=== PATIENT | male | born 1960 | race Caucasian/White ===

== ENCOUNTER → 2016-10-03 | Outpatient (REF) | payer BC ==
[~2016-10-03] MED LIST: *BLDWK7; /ALLEGDTA; ACIPHEX; AMLO10TA; CERTRIZINE; HYDR25TA6; LISI40TA; LOPI600T; TRAM50TA2
[2016-10-03 13:49] LABS: ALBUMIN 4.1 GM/DL (3.2-5.2); ALBUMIN/GLOBULIN RATIO 1.17 (1.00-1.93); ALKALINE PHOSPHATASE 69 U/L (45-117); ALT/SGPT 47 U/L (12-78); ANION GAP 9 MEQ/L (8-16); AST/SGOT 39 U/L (15-37); BILIRUBIN,TOTAL 0.5 MG/DL (0.2-1.0); BLOOD UREA NITROGEN 14 MG/DL (7-18); CALCIUM LEVEL 8.8 MG/DL (8.5-10.1); CARBON DIOXIDE LEVEL 26 MEQ/L (21-32); CHLORIDE LEVEL 103 MEQ/L (98-107); CHOLESTEROL LEVEL 216 MG/DL (<200); CREATININE FOR GFR 0.91 MG/DL (0.70-1.30); GLOMERULAR FILTRATION RATE > 60.0 (>56); GLUCOSE, FASTING 102 MG/DL (70-105); POTASSIUM SERUM 4.7 MEQ/L (3.5-5.1); SODIUM LEVEL 138 MEQ/L (136-145); TOTAL PROTEIN 7.6 GM/DL (6.4-8.2); TRIGLYCERIDES LEVEL 368 MG/DL (<150)
== END ==
LOC: M LABDRAW1 13:02
PROVIDERS: ATTEND Physician Assistant
DX: I10 Essential (primary) hypertension (principal); E78.4 Other hyperlipidemia; Z12.5 Encounter for screening for malignant neoplasm of prostate
CPT/HCPCS: 36415; 80053; 80061; G0103

== ENCOUNTER → 2017-01-16 | Outpatient (REF) | payer BC ==
[2017-01-16 13:03] LABS: ALBUMIN 4.1 GM/DL (3.2-5.2); ALBUMIN/GLOBULIN RATIO 1.24 (1.00-1.93); ALKALINE PHOSPHATASE 64 U/L (45-117); ALT/SGPT 52 U/L (12-78); ANION GAP 11 MEQ/L (8-16); AST/SGOT 30 U/L (15-37); BILIRUBIN,TOTAL 0.5 MG/DL (0.2-1.0); BLOOD UREA NITROGEN 13 MG/DL (7-18); CARBON DIOXIDE LEVEL 27 MEQ/L (21-32); CHLORIDE LEVEL 104 MEQ/L (98-107); CHOLESTEROL LEVEL 214 MG/DL (<200); CREATININE FOR GFR 0.85 MG/DL (0.70-1.30); GLOMERULAR FILTRATION RATE > 60.0 (>56); GLUCOSE, FASTING 95 MG/DL (70-105); SODIUM LEVEL 142 MEQ/L (136-145); TOTAL PROTEIN 7.4 GM/DL (6.4-8.2); TRIGLYCERIDES LEVEL 322 MG/DL (<150)
== END ==
LOC: M LABDRAW1 11:53
PROVIDERS: ATTEND Physician Assistant
DX: E78.4 Other hyperlipidemia (principal)

== ENCOUNTER → 2017-07-07 | Outpatient (CLI) | payer BC | LOC: M ADAMS 12:53 | DX: M72.2 Plantar fascial fibromatosis (principal) | CPT/HCPCS: 73630 ==

== ENCOUNTER → 2018-07-02 | Outpatient (REF) | payer BC ==
[2018-07-02 12:38] LABS: HEMOGLOBIN A1c 5.7 %
== END ==
LOC: M SFHCPLAZ 07:56
PROVIDERS: ATTEND Family Medicine
DX: R73.03 Prediabetes (principal)

== ENCOUNTER 2018-07-09 08:24 | Emergency (ER) | payer BC ==
[~2018-07-09] VITALS: Ht 177.8 cm; Wt 114.5 kg
[2018-07-09] MEDS ORDERED: HYDR-3713 PO (08:39)
[2018-07-09] MEDS ORDERED: HYDR25TAB PO (08:39)
[2018-07-09] MEDS ORDERED: LISI-538 PO (08:39)
[2018-07-09] MEDS ORDERED: ROBA750T4 PO (08:39)
[2018-07-09] MEDS ORDERED: AMLO10TA5 PO (08:39)
[2018-07-09] MEDS ORDERED: PREV1CAP PO (08:39)
[2018-07-09] MEDS ORDERED: ALPR2TAB3 PO (08:39)
[2018-07-09] MEDS ORDERED: PRAV40TA2 PO (08:39)
[2018-07-09] MEDS ORDERED: ASPI81TA85 PO (08:39)
[2018-07-09] MEDS ORDERED: PROP10TAB PO (08:39)
[2018-07-09] MEDS ORDERED: NS 1,000 ML IV ONE (09:00)
[2018-07-09] MEDS ORDERED: KETOROLAC 30 MG/ML VIAL (J1885) IV ONE (09:00)
[2018-07-09 09:32] LABS: BASO # 0.1 10^3/uL (0.0-0.2); BASO % 0.4 % (0.0-1.0); EOS # 0.3 10^3/uL (0.0-0.50); EOS % 2.2 % (0.0-3.0); HEMATOCRIT 44.6 % (42.0-52.0); HEMOGLOBIN 15.2 g/dl (13.5-17.5); LYMPH # 2.8 10^3/uL (1.5-4.5); LYMPH % 20.8 % (24.0-44.0); MEAN CORPUSCULAR HEMOGLOBIN 31.9 pg (27.0-33.0); MEAN CORPUSCULAR HGB CONC 34.1 g/dl (32.0-36.5); MEAN CORPUSCULAR VOLUME 93.5 fl (80.0-96.0); MONO # 1.3 10^3/uL (0.0-0.8); MONO % 9.5 % (0.0-5.0); NEUTROPHILS # 8.8 10^3/uL (1.8-7.7); NEUTROPHILS % 66.7 % (36.0-66.0); PLATELET COUNT, AUTOMATED 266 10^3/uL (150-450); RED BLOOD COUNT 4.77 10^6/uL (4.30-6.10); WHITE BLOOD COUNT 13.2 10^3/uL (4.0-10.0)
[2018-07-09 09:56] LABS: ALBUMIN 4.1 GM/DL (3.2-5.2); BILIRUBIN,DIRECT 0.2 MG/DL (0.0-0.2); BILIRUBIN,TOTAL 0.6 MG/DL (0.2-1.0); CALCIUM LEVEL 8.8 MG/DL (8.8-10.2); CREATININE FOR GFR 1.32 MG/DL (0.70-1.30); GLOMERULAR FILTRATION RATE 58.9 (>49); POTASSIUM SERUM 4.4 MEQ/L (3.5-5.1)
--- NOTE | 2018-07-09 10:13 | REP ---
CT ABDOMEN AND PELVIS WITHOUT IV OR ORAL CONTRAST: Renal stone protocol. HISTORY: Right sided renal colic. Comparison CT study is from June 22, 2006. CT FINDINGS: Digital preliminary [place] radiograph shows an unremarkable bowel gas pattern. The lung bases are clear on axial CT images. The liver shows mild diffuse fatty infiltration but no focal liver lesion is seen. The gallbladder is unremarkable. The spleen is normal in size homogeneous in texture. Normal adrenal glands are seen bilaterally. No pancreatic abnormality is observed. There is mild right-sided hydronephrosis and right-sided hydroureter is seen to the level of the mid ureteral segment where there is an obstructing calculus. The calculus measures 6 mm in diameter. There is mild periureteral edema. There is some perinephric edema. There is a 3 mm intrarenal calculus in the upper pole of the left kidney and a tiny left mid kidney stone is also seen. There is a cyst in the lower pole of the left kidney measuring 13 mm. No bladder calculus is seen. Prostate and seminal vesicles are unremarkable. There is left colonic diverticulosis without CT evidence of diverticulitis. Mesenteric cecum and ascending colon. The ileocecal valve and cecum are to the left of midline in the central abdomen. There is a umbilical hernia transmitting abdominal fat. There are degenerative changes in the lumbar spine and a degenerative grade 1 5 mm L3-4 spondylolisthesis is present. IMPRESSION: Obstructing 6 mm right mid ureteral calculus with right-sided hydronephrosis. Fatty infiltration of the liver. Left colonic diverticulosis. Mesenteric cecum and ascending colon noted incidentally. Umbilical hernia. Electronically Signed by Lalit Ray MD 07/09/2018 10:46 A
[2018-07-09] MEDS ORDERED: FLOM0.4C39 PO (10:48)
[2018-07-09] MEDS ORDERED: ONDA4TAB6 PO (10:48)
[2018-07-09] MEDS ORDERED: IBUP-1022 PO (10:48)
[2018-07-09] MEDS ORDERED: NORCOTAB PO (10:48)
[2018-07-09 10:54] VITALS: BP 132/84
== END 2018-07-09 10:59 | disposition home or self-care (01) ==
LOC: M ED 08:24
DX: N20.0 Calculus of kidney (principal); N13.30 Unspecified hydronephrosis; Z87.442 Personal history of urinary calculi; E78.00 Pure hypercholesterolemia, unspecified; I10 Essential (primary) hypertension; J45.909 Unspecified asthma, uncomplicated; G47.30 Sleep apnea, unspecified; K21.9 Gastro-esophageal reflux disease without esophagitis; K57.32 Diverticulitis of large intestine without perforation or abscess without bleeding; Z79.82 Long term (current) use of aspirin; Z79.899 Other long term (current) drug therapy
CPT/HCPCS: 74176; 80048; 80076; 81001; 85025; 96374; 99284; J1885

== ENCOUNTER → 2018-07-16 | Outpatient (CLI) | payer BC ==
[~2018-07-16] MED LIST changes: +ALPR2TAB3 PO; +AMLO10TA5 PO; +ASPI81TA85 PO; +FLOM0.4C39 PO; +HYDR-3713 PO; +HYDR25TAB PO; +IBUP-1022 PO; +LISI-538 PO; +NORCOTAB PO; +ONDA4TAB6 PO; +PRAV40TA2 PO; +PREV1CAP PO; +PROP10TAB PO; +ROBA750T4 PO
[2018-07-16 18:54] LABS: IONIZED CALCIUM 4.6 MG/DL (4.5-5.3)
[2018-07-16 19:31] LABS: ALBUMIN 4.4 GM/DL (3.2-5.2); ALT/SGPT 33 U/L (12-78); BILIRUBIN,TOTAL 0.4 MG/DL (0.2-1.0); BLOOD UREA NITROGEN 15 MG/DL (7-18); CALCIUM LEVEL 9.2 MG/DL (8.8-10.2); CARBON DIOXIDE LEVEL 31 MEQ/L (21-32); CHLORIDE LEVEL 102 MEQ/L (98-107); GLOMERULAR FILTRATION RATE > 60.0 (>49); GLUCOSE, FASTING 99 MG/DL (70-100); MAGNESIUM LEVEL 1.7 MG/DL (1.8-2.4); POTASSIUM SERUM 4.5 MEQ/L (3.5-5.1); SODIUM LEVEL 140 MEQ/L (136-145); TOTAL PROTEIN 8.3 GM/DL (6.4-8.2); URIC ACID 6.3 MG/DL (3.5-7.2)
[2018-07-16 19:39] LABS: PTH INTACT 61.2 PG/ML (18.5-88.0)
[2018-07-16 19:40] LABS: BASO # 0.1 10^3/uL (0.0-0.2); BASO % 0.5 % (0.0-1.0); EOS # 0.4 10^3/uL (0.0-0.50); EOS % 4.1 % (0.0-3.0); HEMOGLOBIN 15.2 g/dl (13.5-17.5); LYMPH # 3.9 10^3/uL (1.5-4.5); LYMPH % 38.7 % (24.0-44.0); MEAN CORPUSCULAR HEMOGLOBIN 31.5 pg (27.0-33.0); MEAN CORPUSCULAR VOLUME 95.4 fl (80.0-96.0); MONO # 0.8 10^3/uL (0.0-0.8); MONO % 7.9 % (0.0-5.0); NEUTROPHILS # 4.9 10^3/uL (1.8-7.7); NEUTROPHILS % 48.5 % (36.0-66.0); PLATELET COUNT, AUTOMATED 289 10^3/uL (150-450); RED BLOOD COUNT 4.82 10^6/uL (4.30-6.10); WHITE BLOOD COUNT 10.1 10^3/uL (4.0-10.0)
--- NOTE | 2018-07-17 02:26 | REP ---
Clinical: Ureteral calculus. Technique: Two supine views of the abdomen and pelvis. Correlation: CT dated 07/09/2018. Findings: Evaluation of the urinary tract system is somewhat limited due to overlying bowel gas and technique. I suspect that the 6 mm obstructing calculus has progressed into the distal ureter overlying the distal portion of the right hemisacrum. Calcifications in the left lizzeth-sacrum are consistent with phleboliths. Bowel gas pattern suggests mild/moderate fecal stasis. No bowel obstruction. No organomegaly. Skeletal structures demonstrate age-related changes. Impression: Suspected progression of the right ureteral stone into the distal right ureter overlying the right hemisacrum. Electronically Signed by Rell Chase MD 07/17/2018 02:17 A
--- NOTE | 2018-07-17 02:37 | REP ---
Clinical: Preoperative assessment for ureteral stone removal . Comparison: 07/12/2008 . Findings: The mediastinum and cardiac silhouette are stable and within normal limits for portable technique. The lung suero are clear without acute consolidation, effusion, or pneumothorax. Skeletal structures are intact. Impression: No acute cardiopulmonary process appreciated. Electronically Signed by Rell Chase MD 07/17/2018 02:28 A
== END ==
LOC: M SMT 14:17
PROVIDERS: ATTEND Urology Pediatric Urology
DX: N20.1 Calculus of ureter (principal)

== ENCOUNTER → 2018-07-23 | Outpatient (CLI) | payer BC ==
[2018-07-26 00:09] LABS: PSA TOTAL 0.4 ng/mL (0.0-4.0)
== END ==
LOC: M SMT 11:03
PROVIDERS: ATTEND Urology Pediatric Urology
DX: N20.1 Calculus of ureter (principal)

== ENCOUNTER → 2018-08-14 | Outpatient (REF) | payer BC ==
[~2018-08-14] MED LIST changes: +ALBU17IN2 INH; +ALPR0.5T3 PO; +DIPH25CA PO; +FLUTISP; +MAGN400T2 PO; +MULT1TAB10 PO; +SING10TA32 PO; +SYMB16INH INH; +VITA100067 PO; +VITA500T PO
[2018-08-14 18:31] LABS: APPEARANCE, URINE CLEAR (CLEAR); BACTERIA, URINE AUTO NEGATIVE (NEGATIVE); BILIRUBIN, URINE AUTO NEGATIVE (NEGATIVE); BLOOD, URINE BLOOD NEGATIVE (NEGATIVE); COLOR, URINE YELLOW (YELLOW); GLUCOSE, URINE (UA) AUTO NEGATIVE (NEGATIVE); KETONE, URINE AUTO NEGATIVE (NEGATIVE); LEUKOCYTE ESTERASE, URINE AUTO NEGATIVE (NEGATIVE); NITRITE, URINE AUTO NEGATIVE (NEGATIVE); PROTEIN, URINE AUTO NEGATIVE (NEGATIVE); RBC, URINE AUTO 0 /HPF (0-3); SPECIFIC GRAVITY URINE AUTO 1.014 (1.002-1.035); SQUAMOUS EPITHELIAL CELL UR AU 0 /HPF (0-6); UROBILINOGEN, URINE AUTO 0.2 mg/dL (0.0-2.0); WBC, URINE AUTO 0 /HPF (0-3)
== END ==
LOC: M SFHCPLAZ 17:36
PROVIDERS: ATTEND Family Medicine
DX: N20.1 Calculus of ureter (principal)

== ENCOUNTER 2018-08-22 06:52 | Day surgery (SDC) | payer BC ==
[~2018-08-22] VITALS: Ht 175.3 cm; Wt 122.5 kg
[~2018-08-22 06:52] MED LIST changes: +LR 1,000 ML IV SCH; +ceFAZolin SOD 1 GM in D5W MINI-BAG PLUS 50 ML IV ONE
[2018-08-22] MEDS ORDERED: CONRAY-60 60% 50ML VIAL (Q9961) As Ordered ONE (08:02)
[2018-08-22] MEDS ORDERED: LIDOCAINE 2% 5ML JELLY UROJET As Ordered ONE (08:38)
[2018-08-22] MEDS ORDERED: PROPOFOL 200 MG/20 ML VIAL As Ordered ONE ×3 (08:40→09:00)
[2018-08-22] MEDS ORDERED: MIDAZOLAM INJ 2 MG/2 ML VIAL (J2250) As Ordered ONE (08:40)
[2018-08-22] MEDS ORDERED: fentaNYL 100 MCG/2 ML INJECTION (J3010) As Ordered ONE (08:40)
[2018-08-22 09:35] VITALS: BP 99/61
[2018-08-22] MEDS ORDERED: PERCOCET 5MG/325MG TAB PO PRN (09:45)
[2018-08-22] MEDS ORDERED: HYDROMORPHONE HCL 0.5 MG/ 0.5 ML SYRINGE (J1170 PER 1) IV PRN (09:45)
[2018-08-22] MEDS ORDERED: fentaNYL 100 MCG/2 ML INJECTION (J3010) IV PRN (09:45)
--- NOTE | 2018-08-22 09:58 | REP ---
RETROGRADE PYELOGRAM: 08/22/2018. Clinical history: Right mid ureteral stone. Comparison: KUB 07/16/2018, CT 07/09/2018. Findings: Five images from C-arm fluoroscopy provided to Dr. Hayden of the urology division are reviewed. The wire is seen coursing up the right ureter to the renal pelvis with a catheter to follow as the wire is coiled in the renal pelvis. The last image shows no wire or catheter in place. Contrast is completely drained from the collecting system and ureter. Fluoroscopy time: 12 seconds. Electronically Signed by Tad Bower MD 08/22/2018 09:47 P
--- NOTE | 2018-08-22 18:17 | RO ---
DATE OF PROCEDURE: 08/22/2018 PREPROCEDURE DIAGNOSIS: Right ureteral stone. POSTPROCEDURE DIAGNOSIS: Right ureteral stone. PROCEDURE: Cystoscopy, right ureteroscopy, right retrograde pyelogram with intraoperative interpretation of images. SURGEON: Steffen Hayden MD TRAVEL ASSISTANT: None. ANESTHESIA: Monitored anesthesia care (MAC) OPERATIVE INDICATIONS: This is a 58-year-old male who was found to have a 6 to 7 mm mid right ureteral stone three weeks ago. He was brought to the operating room today for treatment. DESCRIPTION OF PROCEDURE: The patient was brought to the operating room and MAC anesthesia was administered. Prophylactic antibiotics were infused. He was then placed in the dorsal lithotomy position, prepped and draped in the usual sterile fashion. At this point, a rigid cystoscope was inserted through the urethral meatus and advanced into the bladder. A guidewire was advanced up the right collecting system. I then removed the cystoscope and then went up the right collecting system with a short semirigid ureteroscope and examined all the way up to the mid right ureter. No stones were seen. The ureter was adequately dilated. I therefore, withdrew the short semirigid ureteroscope and then put a ureteral access sheath up the right collecting system. I then went up the ureteral access sheath with a flexible ureteroscope and examined the remainder of the ureter and the kidney. There were no stones seen in the mid to proximal ureter and there were no stones inside the kidney. Retrograde pyelogram was performed and was notable for mild right hydronephrosis, no extravasation. I then withdrew the ureteroscope along with the access sheath and once again no stones were seen within the ureter. I then examined the right ureteral orifice to see if it did efflux normally and it did. Contrast did seem to start draining out of the right kidney. Thus, I decided not to place a stent. At this point the wire was then removed and the bladder was emptied of all fluid and this marked the conclusion of the procedure. The patient was then taken out of the dorsal lithotomy position, awakened from anesthesia and transported to the recovery room in stable condition. ESTIMATED BLOOD LOSS: 5 mL. COMPLICATIONS: None. SPECIMENS: None. PLAN: The patient will followup in the clinic in a few weeks for postoperative visit. CHELSEA
== END 2018-08-22 10:20 | disposition home or self-care (01) ==
LOC: M SDC 06:52
PROVIDERS: ATTEND Urology
DX: N20.1 Calculus of ureter (principal); I10 Essential (primary) hypertension; E78.5 Hyperlipidemia, unspecified; J45.909 Unspecified asthma, uncomplicated; N40.0 Benign prostatic hyperplasia without lower urinary tract symptoms; G47.30 Sleep apnea, unspecified; Z79.82 Long term (current) use of aspirin; Z79.899 Other long term (current) drug therapy; K21.9 Gastro-esophageal reflux disease without esophagitis; R73.03 Prediabetes
CPT/HCPCS: 52005; 74420; C1769; C1894; J0690; J2250; J3010; Q9961

== ENCOUNTER → 2018-08-28 | Outpatient (REF) | payer BC ==
[~2018-08-28] MED LIST changes: -LR 1,000 ML IV SCH; -ceFAZolin SOD 1 GM in D5W MINI-BAG PLUS 50 ML IV ONE
== END ==
LOC: M SMT 17:15
PROVIDERS: ATTEND Urology
DX: R30.0 Dysuria (principal)

== ENCOUNTER 2019-07-23 07:31 | Day surgery (SDC) | payer BC ==
[~2019-07-23] VITALS: Ht 177.8 cm; Wt 123.8 kg
[~2019-07-23 07:31] MED LIST changes: -ALBU17IN2 INH; -DIPH25CA PO; +DIPH25CA32 PO; +FISH306C PO; +HYDR-3715 PO; +MULT1TAB7 PO; -NORCOTAB PO; +NS 1,000 ML IV ONE; +PROP10TA55 PO; +PROP10TA56 PO; -PROP10TAB PO; +PROV108A INH; +VITA100054 PO
[2019-07-23] MEDS ORDERED: LIDOCAINE 2% INJ 100 MG/5 ML SDV (FOR ANES.) As Ordered ONE (09:14)
[2019-07-23] MEDS ORDERED: propofoL 200 MG/20 ML VIAL As Ordered ONE (09:14)
--- NOTE | 2019-07-23 09:24 | ROOR ---
Patient Name: Erick Spencer Procedure Date: 07/23/2019 8:57 AM Date of : 1960 Age: 59 Room: [facility] Gender: Male Note Status: Finalized Procedure: Upper GI endoscopy Indications: Surveillance procedure, Follow-up of Abnerjee's esophagus Providers: Cezar Hernandez MD Referring MD: [facility] [place], [facility], Admin. Requesting Provider: Medicines: Monitored Anesthesia Care Complications: No immediate complications. Procedure: Pre-Anesthesia Assessment: - Prior to the procedure, a History and Physical was performed, and patient medications and allergies were reviewed. The patient is competent. The risks and benefits of the procedure and the sedation options and risks were discussed with the patient. All questions were answered and informed consent was obtained. Patient identification and proposed procedure were verified by the physician, the nurse and the anesthesiologist in the procedure room. Mental Status Examination: alert and oriented. Airway Examination: normal oropharyngeal airway and neck mobility. Prophylactic Antibiotics: The patient does not require prophylactic antibiotics. Prior Anticoagulants: The patient has taken no previous anticoagulant or antiplatelet agents. ASA Grade Assessment: III - A patient with severe systemic disease. After reviewing the risks and benefits, the patient was deemed in satisfactory condition to undergo the procedure. The anesthesia plan was to use monitored anesthesia care (MAC). Immediately prior to administration of medications, the patient was re-assessed for adequacy to receive sedatives. The heart rate, respiratory rate, oxygen saturations, blood pressure, adequacy of pulmonary ventilation, and response to care were monitored throughout the procedure. The physical status of the patient was re-assessed after the procedure. The Endoscope was introduced through the mouth, and advanced to the second part of duodenum. The upper GI endoscopy was accomplished without difficulty. The patient tolerated the procedure well. Findings: The examined esophagus was normal. Multiple 2 to 10 mm pedunculated and sessile polyps with no bleeding and no stigmata of recent bleeding were found in the gastric fundus and in the gastric body. The first portion of the duodenum and second portion of the duodenum were normal. Impression: - Normal esophagus. - Multiple gastric polyps. - Normal first portion of the duodenum and second portion of the duodenum. - No specimens collected. Recommendation: - Discharge patient to home. - Resume previous diet. - Continue present medications. Cezar Hernandez MD Cezar Hernandez MD 07/23/2019 9:24:17 AM Electronically signed by Cezar Hernandez MD Number of Addenda: 0 Note Initiated On: 07/23/2019 8:57 AM Estimated Blood Loss: Estimated blood loss: none.
[2019-07-23 09:40] VITALS: BP 148/77
== END 2019-07-23 09:50 | disposition home or self-care (01) ==
LOC: M OPP 07:31
PROVIDERS: ATTEND Surgery
DX: K31.2 Hourglass stricture and stenosis of stomach (principal); K22.70 Barrett's esophagus without dysplasia; K21.9 Gastro-esophageal reflux disease without esophagitis; G47.30 Sleep apnea, unspecified; Z79.891 Long term (current) use of opiate analgesic; Z79.899 Other long term (current) drug therapy

== ENCOUNTER → 2019-07-31 | Outpatient (REF) | payer BC ==
[~2019-07-31] MED LIST changes: -NS 1,000 ML IV ONE
== END ==
LOC: M SFHCPLAZ 11:18
PROVIDERS: ATTEND Family Medicine
DX: Z12.5 Encounter for screening for malignant neoplasm of prostate (principal)

== ENCOUNTER → 2019-10-17 | Outpatient (CLI) | payer BC ==
[~2019-10-17] MED LIST changes: +VITA-243 PO; -VITA500T PO
--- NOTE | 2019-10-17 19:23 | REP ---
Clinical: Palpable mass. Technique: Real time ruiz scale and color Doppler evaluation using linear high frequency transducer. Findings: The bilateral testicles are normal in contour, size, echogenicity, and vascularity without intratesticular mass lesion, infectious/inflammatory process, torsion. A complex 8 x 6 x 9 mm presumed cyst in the right epididymal tail is identified and corresponds to the patient's palpable mass. No associated hydrocele. No varicocele. A 6 x 3 x 4 mm simple left epididymal head cyst is identified along with small simple left hydrocele. Right testicle measures 3.6 x 2.3 x 3.3 cm. Left testicle measures 4.2 x 2.5 x 2.7 cm. Impression: 1. Palpable mass corresponds to complex cystic structure in the right epididymal tail. Consider follow-up examination at three 6 months to evaluate for stability. 2. Further relatively nonsignificant findings noted above. Electronically Signed by Rell Chase MD 10/17/2019 07:14 P
== END ==
LOC: M RAD 13:10
PROVIDERS: ATTEND Nurse Practitioner Women's Health
DX: N50.89 Other specified disorders of the male genital organs (principal); N43.3 Hydrocele, unspecified

== ENCOUNTER → 2019-11-05 | Outpatient (REF) | payer BC | LOC: M SFHCPLAZ 10:37 | PROVIDERS: ATTEND Family Medicine | DX: Z12.5 Encounter for screening for malignant neoplasm of prostate (principal) | CPT/HCPCS: 36415; G0103 ==

== ENCOUNTER 2020-08-12 15:46 | Emergency (ER) | payer BC ==
[~2020-08-12] VITALS: Ht 177.8 cm; Wt 113.6 kg
[~2020-08-12 15:46] MED LIST changes: -AMLO10TA5 PO; +AMLO1TAB25 PO; -ASPI81TA85 PO; +ASPI81TA86 PO; +HYDR-3490 PO; -HYDR25TAB PO; -LISI-538 PO; +LISI20TA33 PO
[2020-08-12] MEDS ORDERED: ALLE1TAB23 (16:03)
[2020-08-12] MEDS ORDERED: MECLIZINE 25 MG TABLET PO ONE ×2 (16:15→20:30)
--- NOTE | 2020-08-12 16:41 | REP ---
INDICATION: dizzy COMPARISON: None. TECHNIQUE: Axial noncontrast images from the skull base to the thoracic inlet with coronal reformations. This CT examination was performed using the following dose reduction techniques: Automated exposure control, adjustment of mA and/or kv according to the patient's size, and use of iterative reconstruction technique. FINDINGS: Age-related atrophy and microvascular ischemic changes are appreciated. The ventricles and sulci are symmetric. Devi-white differentiation is maintained. There is no evidence for acute intracranial hemorrhage, mass/mass effect, pathology or infarction. No extra-axial fluid collection. Calvarium is intact. Paranasal sinuses and mastoid air cells are clear. IMPRESSION: Age related atrophy and microvascular ischemic changes. No acute intracranial hemorrhage, infarction, or mass/mass effect. <Electronically signed by Rell Chase > 08/12/20 [id number]
[2020-08-12 17:26] LABS: BASO % 0.3 % (0.0-1.0); EOS # 0.1 10^3/uL (0.0-0.5); EOS % 0.7 % (0.0-3.0); HEMATOCRIT 41.9 % (42.0-52.0); HEMOGLOBIN 13.5 g/dl (13.5-17.5); LYMPH # 1.8 10^3/uL (1.5-5.0); LYMPH % 20.4 % (24.0-44.0); MEAN CORPUSCULAR HEMOGLOBIN 30.2 pg (27.0-33.0); MEAN CORPUSCULAR HGB CONC 32.2 g/dl (32.0-36.5); MEAN CORPUSCULAR VOLUME 93.7 fl (80.0-96.0); MONO # 0.6 10^3/uL (0.0-0.8); MONO % 6.5 % (2.0-8.0); NEUTROPHILS # 6.3 10^3/uL (1.5-8.5); NEUTROPHILS % 71.6 % (36.0-66.0); PLATELET COUNT, AUTOMATED 216 10^3/uL (150-450); RED BLOOD COUNT 4.47 10^6/uL (4.30-6.10); WHITE BLOOD COUNT 8.9 10^3/uL (4.0-10.0)
[2020-08-12 17:31] LABS: BLOOD UREA NITROGEN 14 MG/DL (7-18); CALCIUM LEVEL 9.4 MG/DL (8.8-10.2); CARBON DIOXIDE LEVEL 28 MEQ/L (21-32); CHLORIDE LEVEL 105 MEQ/L (98-107); CK-MB VALUE MASS < 1.0 NG/ML (<3.6); CPK CREATINE PHOSPHOKINASE 207 U/L (39-308); CREATININE FOR GFR 1.03 MG/DL (0.70-1.30); GLOMERULAR FILTRATION RATE > 60.0 (>49); GLUCOSE, FASTING 123 MG/DL (70-100); MB/CK RELATIVE INDEX 0.48 (< OR =4); POTASSIUM SERUM 5.9 MEQ/L (3.5-5.1); SODIUM LEVEL 136 MEQ/L (136-145); THYROID STIMULATING HORMONE 0.368 uIU/ML (0.358-3.740); TROPONIN I < 0.02 NG/ML (< 0.10)
--- NOTE | 2020-08-12 19:54 | REPVR ---
PROCEDURE INFORMATION: Exam: MR Head Without Contrast Exam date and time: 08/12/2020 7:22 PM Age: 60 years old Clinical indication: Other: Intratcble vertigo TECHNIQUE: Imaging protocol: MR of the head without contrast. COMPARISON: CT Head without contrast 08/12/2020 4:27 PM FINDINGS: Brain: No restricted diffusion within the brain to suggest an acute infarct. Mild increased FLAIR signal intensity is identified involving the medial left temporal lobe, suggestive of edema or gliosis. Differential considerations include encephalitis and status epilepticus. Additional pathology cannot be excluded. There are a tiny nonspecific focus of FLAIR hyperintensity within the right parietal white matter. There is no mass effect or restricted diffusion associated with these foci. In a patient this age, this likely represents chronic small vessel ischemic disease. Mild age-appropriate prominence of the sulci. Small foci of magnetic susceptibility calcification or hemosiderin are visualized within the bilateral globus pallidus. Cerebral ventricles: No ventriculomegaly. Bones/joints: Unremarkable, as visualized. Paranasal sinuses: Mild mucosal thickening of scattered ethmoid air cells and the left maxillary sinus. Minimal mucosal thickening of the right sphenoid sinus and right maxillary sinus as well as the bilateral frontal sinuses. Mastoid air cells: No mastoid effusion. Orbital cavity: Motion artifact limits evaluation of the optic globes. Soft tissues: Unremarkable, as visualized. Lymph nodes: A small nodule or intraparotid lymph node is seen within the left parotid gland. The differential includes both benign and malignant etiologies. Additional tiny intraparotid lymph nodes are seen bilaterally. IMPRESSION: 1. No acute infarct. 2. Mild increased FLAIR signal intensity is identified involving the medial left temporal lobe, suggestive of edema or gliosis. Differential considerations include encephalitis and status epilepticus. Clinical correlation and postcontrast images are recommended. 3. There are a tiny nonspecific focus of FLAIR hyperintensity within the right parietal white matter. Chronic small vessel ischemic disease is considered. 4. Paranasal sinus disease. 5. A small nodule or intraparotid lymph node is seen within the left parotid gland. 6. Additional findings described above. Electronically signed by: Calvin Torres On 08/12/2020 19:55:10 PM
--- NOTE | 2020-08-12 20:04 | REPVR ---
PROCEDURE INFORMATION: Exam: MR Angiogram Head Without Contrast, Arteries Exam date and time: 08/12/2020 7:22 PM Age: 60 years old Clinical indication: Vertigo; Additional info: Intratcble vertigo TECHNIQUE: Imaging protocol: MR angiogram head without contrast. Exam focused on the arteries. 3D rendering (Not supervised by radiologist): MIP and/or 3D reconstructed images were created by the technologist. COMPARISON: CT Head without contrast 08/12/2020 4:27 PM FINDINGS: ANTERIOR CIRCULATION: Right internal carotid artery: No significant stenosis or occlusion. There is a small vascular outpouching of the cavernous right internal carotid artery measuring 2 mm in diameter, consistent with a small aneurysm. Increased tortuosity of the right extracranial internal carotid artery. Right middle cerebral artery: There is mild heterogeneous signal intensity of the right middle cerebral artery, symmetric to the left MCA and likely artifactual. No significant stenosis or occlusion. No visualized aneurysm. Right anterior cerebral artery: No occlusion or significant stenosis. No aneurysm. Left internal carotid artery: Intracranial segment is patent with no significant stenosis. No aneurysm. Left middle cerebral artery: There is mild heterogeneous signal intensity of the left middle cerebral artery, symmetric to the right MCA and likely artifactual. No significant stenosis or occlusion. No visualized aneurysm. Left anterior cerebral artery: No occlusion or significant stenosis. No aneurysm. POSTERIOR CIRCULATION: Right vertebral artery: No occlusion or significant stenosis. No aneurysm. Left vertebral artery: No occlusion or significant stenosis. No aneurysm. Basilar artery: No occlusion or significant stenosis. No aneurysm. Right posterior cerebral artery: No occlusion or significant stenosis. No aneurysm. Left posterior cerebral artery: No occlusion or significant stenosis. No aneurysm. IMPRESSION: 1. No significant arterial stenosis or occlusion on this MRA head. 2. There is a small vascular outpouching of the cavernous right internal carotid artery measuring 2 mm in diameter, consistent with a small aneurysm. 3. Additional findings described above. Electronically signed by: Calvin Torres On 08/12/2020 20:05:07 PM
[2020-08-12] MEDS ORDERED: MECL1TAB31 PO (20:14)
[2020-08-12 20:40] VITALS: BP 119/61
--- NOTE | 2020-08-13 06:44 | ED PDOC ---
Post-Departure Follow-Up certiifed letter sent to pt re formal read of mri brain. see report. obtain pcp name and number in [place] and fax for fu Carlton Zafar MD Aug 13, 2020 06:44
--- NOTE | 2020-08-14 07:49 | ECGEPIP ---
[facility] - ED Test Date: 2020-08-12 Pat Name: DEEPALI AYALA Department: Room: - Gender: Male [employer]: KERRY : 1960 Requested By: Elizabeth Lam Order Number: [id number] Reading MD: Elizabeth Lam Measurements Intervals [place] Rate: 75 P: 59 VA: 150 QRS: -4 QRSD: 90 T: 12 QT: 402 QTc: 448 Interpretive Statements Normal sinus rhythm No prior Electronically Signed on 08-14-2020 7:49:48 EST by Elizabeth Lam
== END 2020-08-12 20:39 | disposition home or self-care (01) ==
LOC: M ED 15:46
DX: H81.4 Vertigo of central origin (principal); E78.5 Hyperlipidemia, unspecified; J45.909 Unspecified asthma, uncomplicated; I10 Essential (primary) hypertension; K22.719 Barrett's esophagus with dysplasia, unspecified